=== PATIENT | male | born 1995 | race Caucasian/White ===

== ENCOUNTER 2016-12-15 16:12 | Emergency (ER) | payer MEDICAID, OTHER ==
--- NOTE | 2016-12-15 16:47 | EDM.PDOC ---
ED HPI GENERAL MEDICAL PROBLEM - General Chief Complaint: Upper Extremity Injury/Pain Stated Complaint: LT SHOULDER PAIN Time Seen by Provider: 12/15/16 16:44 Source of Information: Reports: Patient History Limitations: Reports: No Limitations - History of Present Illness INITIAL COMMENTS - FREE TEXT/NARRATIVE: HISTORY AND PHYSICAL: History of present illness: Patient is a 20-year-old male that presents to the emergency room today with complaints of left shoulder pain. States him and a friend were running and jumped into each other, colliding into his left shoulder. Patient has pain with range of motion. Denies any numbness or tingling to the affected extremity. Denies hitting his head or any loss of consciousness Review of systems: As per history of present illness and below otherwise all systems reviewed and negative. Past medical history: As per history of present illness and as reviewed below otherwise noncontributory. Surgical history: As per history of present illness and as reviewed below otherwise noncontributory. Social history: No reported history of drug or alcohol abuse. Family history: As per history of present illness and as reviewed below otherwise noncontributory. Physical exam: Gen.: Nontoxic appearing 19-year-old male. Able to speak in full sentences without shortness of breath. Alert and oriented. HEENT: Atraumatic, normocephalic, pupils reactive, negative for conjunctival pallor or scleral icterus, mucous membranes moist, throat clear, neck supple, nontender, trachea midline. Lungs: Clear to auscultation, breath sounds equal bilaterally, chest nontender. Heart: S1S2, regular, negative for clicks, rubs, or JVD. Abdomen: Soft, nondistended, nontender. Negative for masses or hepatosplenomegaly. Negative for costovertebral tenderness. Pelvis: Stable nontender. Genitourinary: Deferred. Rectal: Deferred. Extremities: Restricted range of motion due to pain at shoulder joint. +CMS, strong radial pulses bilaterally. Neurovascular unremarkable. Neuro: Awake, alert, oriented. Cranial nerves II through XII unremarkable. Cerebellum unremarkable. Motor and sensory unremarkable throughout. Exam nonfocal. Diagnostics: X-ray left shoulder Therapeutics: Toradol, sling Impression: Shoulder injury Plan: 1. Take your Diclofenac as prescribed. Do not take additional NSAIDs such as Ibuprofen or Aleve. May take Tylenol as needed for breakthrough pain. Please wear her sling as needed for discomfort. 2. Please follow-up with orthopedics if your shoulder continues to bother you. Follow up with her primary care provider in the next 1-2 days. May return to the ED as needed as discussed Definitive disposition and diagnosis as appropriate pending reevaluation and review of above. Onset: Today Onset Date: 12/15/16 Location: Reports: Upper Extremity, Left Left Shoulder Pain Score (Numeric/FACES): 9 - Related Data Allergies Allergy/AdvReac Type Severity Reaction Status Date / Time Iodinated Contrast- Oral and Allergy Hives Verified 12/15/16 16:38 IV Dye [Iodinated Contrast Media - IV Dye] Home Meds: Home Meds QUEtiapine [SEROquel] 100 mg PO BEDTIME #30 tablet 08/29/15 [Rx] ARIPiprazole [Abilify] 10 mg PO DAILY 12/15/16 [History] Mirtazapine [Mirtazapine] 15 mg PO DAILY 12/15/16 [History] Past Medical History - Past Health History Medical/Surgical History: Denies Medical/Surgical History HEENT History: Reports: None Cardiovascular History: Reports: None Respiratory History: Reports: None Gastrointestinal History: Reports: None Genitourinary History: Reports: None Musculoskeletal History: Reports: None Neurological History: Reports: None Psychiatric History: Reports: Depression, Mood Swings, Suicide Attempt, Suicidal Ideation Other Psychiatric History: mood disorder Endocrine/Metabolic History: Reports: None Hematologic History: Reports: None Immunologic History: Reports: None Oncologic (Cancer) History: Reports: None Dermatologic History: Reports: None - Infectious Disease History Infectious Disease History: Reports: None - Past Surgical History Head Surgeries/Procedures: Reports: None HEENT Surgical History: Reports: None Cardiovascular Surgical History: Reports: None Endocrine Surgical History: Reports: None Musculoskeletal Surgical History: Reports: None Dermatological Surgical History: Reports: None Social & Family History - Family History Family Medical History: Noncontributory Cardiac: Reports: Hypertension Psychiatric: Reports: Depression Endocrine/Metabolic: Reports: Diabetes, Type I Oncologic: Reports: Colon - Tobacco Use Smoking Status *Q: Former Smoker Years of Tobacco use: 2 Packs/Tins Daily: 1 Used Tobacco, but Quit: Yes Month Tobacco Last Used: 09/2015 Second Hand Smoke Exposure: No - Caffeine Use Caffeine Use: Reports: None - Alcohol Use Days Per Week of Alcohol Use: 1 Number of Drinks Per Day: 2 Total Drinks Per Week: 2 - Recreational Drug Use Recreational Drug Use: No Review of Systems - Review of Systems Review Of Systems: ROS reveals no pertinent complaints other than HPI. ED EXAM, GENERAL - Physical Exam Exam: See Below (Redictation) Course - Vital Signs Last Recorded V/S: Last Vital Signs Temp 37.1 C 12/15/16 16:34 Pulse 58 L 12/15/16 16:34 Resp 12 12/15/16 16:34 BP 117/58 L 12/15/16 16:34 Pulse Ox 98 12/15/16 16:34 - Orders/Labs/Meds Orders: Active Orders 24 hr Category Date Time Status Communication Order [RC] STAT Care 12/15/16 17:19 Ordered Shoulder Comp Lt [CR] Stat Exams 12/15/16 16:43 Taken Ketorolac [Toradol] Med 12/15/16 17:19 Once 60 mg IM ONETIME ONE Departure - Departure Time of Disposition: 17:22 Disposition: Home, Self-Care 01 Condition: Good Clinical Impression: Shoulder injury Qualifiers: Encounter type: initial encounter Laterality: left Qualified Code(s): S49.92XA - Unspecified injury of left shoulder and upper arm, initial encounter - Discharge Information Referrals: PCP,None [Primary Care Provider] - Forms: ED Department Discharge Additional Instructions: The following information is given to patients seen in the emergency department who are being discharged to home. This information is to outline your options for follow-up care. We provide all patients seen in our emergency department with a follow-up referral. The need for follow-up, as well as the timing and circumstances, are variable depending upon the specifics of your emergency department visit. If you don't have a primary care physician on staff, we will provide you with a referral. We always advise you to contact your personal physician following an emergency department visit to inform them of the circumstance of the visit and for follow-up with them and/or the need for any referrals to a consulting specialist. The emergency department will also refer you to a specialist when appropriate. This referral assures that you have the opportunity for follow-up care with a specialist. All of these measure are taken in an effort to provide you with optimal care, which includes your follow-up. Under all circumstances we always encourage you to contact your private physician who remains a resource for coordinating your care. When calling for follow-up care, please make the office aware that this follow-up is from your recent emergency room visit. If for any reason you are refused follow-up, please contact the [facility] emergency department at and asked to speak to the emergency department charge nurse. [facility] [address] [place] [address], [address] [place] [address] my orthopedic [facility] [address], [place] [address] 1. Take your Diclofenac as prescribed. Do not take additional NSAIDs such as Ibuprofen or Aleve. May take Tylenol as needed for breakthrough pain. Please wear your sling as needed for discomfort over the next 1-2 days. 2. Please follow-up with orthopedics if your shoulder continues to bother you. Follow up with her primary care provider in the next 1-2 days. May return to the ED as needed as discussed - My Orders Last 24 Hours: My Active Orders 12/15/16 16:43 Shoulder Comp Lt [CR] Stat 12/15/16 17:19 Communication Order [RC] STAT Ketorolac [Toradol] 60 mg IM ONETIME ONE - Assessment/Plan Last 24 Hours: My Active Orders 12/15/16 16:43 Shoulder Comp Lt [CR] Stat 12/15/16 17:19 Communication Order [RC] STAT Ketorolac [Toradol] 60 mg IM ONETIME ONE
[2016-12-15] MEDS ORDERED: Ketorolac 60 MG/2 ML SDV IM ONE (17:19)
[2016-12-15 17:58] VITALS: BP 106/57
--- NOTE | 2016-12-18 14:59 | CR ---
EXAM DATE: 12/15/16 PATIENT'S AGE: 20 Patient: BENJAMIN URIARTE Facility: [place], [place] Site . Site : 1995 Study: XRay Shoulder Left [id number]/2/[id number] 5:04:26 PM Ordering Physician: Stefania Lane Final Report: Pain injury 3 views left shoulder. Findings: Normal articulation of the glenohumeral joint. No fractures or dislocations. AC joint within is unremarkable. Impression: 1. No acute fracture or dislocation. Dictated by Heike Mohr MD @ Dec 15 2016 5:13PM (Electronic Signature) Report Signed by Proxy. BANDAR
== END 2016-12-15 17:49 | disposition home or self-care (01) ==
LOC: MW.ED 16:12
DX: S49.92XA Unspecified injury of left shoulder and upper arm, initial encounter (principal); Z91.041 Radiographic dye allergy status; Z79.899 Other long term (current) drug therapy; Z87.891 Personal history of nicotine dependence; W51.XXXA Accidental striking against or bumped into by another person, initial encounter
CPT/HCPCS: 73030; 96372; 99283; J1885; 99284

== ENCOUNTER 2017-01-11 13:33 | Emergency (ER) | payer MEDICAID ==
--- NOTE | 2017-01-11 14:31 | EDM.PDOC ---
ED HPI GENERAL MEDICAL PROBLEM - General Chief Complaint: ENT Problem Stated Complaint: SORE THROAT Time Seen by Provider: 01/11/17 13:50 Source of Information: Reports: Patient History Limitations: Reports: No Limitations - History of Present Illness INITIAL COMMENTS - FREE TEXT/NARRATIVE: HISTORY AND PHYSICAL: History of present illness: [21-year-old male with no significant past history now complaining of dry cough for several days. Patient states she's not coughing very much during the day he has no fevers chills sweats or shaking chills. He has no chest pain or shortness of breath. His cough is not productive at all however at night he says sometimes his cough gets quite bad and persistent and it's difficult to sleep so his father told him to come to the emergency department.] Review of systems: As per history of present illness and below otherwise all systems reviewed and negative. Past medical history: As per history of present illness and as reviewed below otherwise noncontributory. Surgical history: As per history of present illness and as reviewed below otherwise noncontributory. Social history: No reported history of drug or alcohol abuse. Family history: As per history of present illness and as reviewed below otherwise noncontributory. Physical exam: Well-appearing patient distress normal respiratory rate and pulse ox clear lungs regular rate and rhythm no tachycardia benign exam HEENT: Atraumatic, normocephalic, pupils reactive, negative for conjunctival pallor or scleral icterus, mucous membranes moist, throat clear, neck supple, nontender, trachea midline. Lungs: Clear to auscultation, breath sounds equal bilaterally, chest nontender. Heart: S1S2, regular, negative for clicks, rubs, or JVD. Abdomen: Soft, nondistended, nontender. Negative for masses or hepatosplenomegaly. Negative for costovertebral tenderness. Pelvis: Stable nontender. Genitourinary: Deferred. Rectal: Deferred. Extremities: Atraumatic, negative for cords or calf pain. Neurovascular unremarkable. Neuro: Awake, alert, oriented. Cranial nerves II through XII unremarkable. Cerebellum unremarkable. Motor and sensory unremarkable throughout. Exam nonfocal. Diagnostics: [] Therapeutics: [] Impression: [] Plan: [Signs and symptoms consistent with viral URI. Well-appearing patient with no active cough. Benign exam. No further workup or treatment indicated specifically chest x-ray not clinically relevant. Patient aware to use Mucinex DM and will prescribe Tessalon for use as needed. He is aware to use a bedside vaporizer and follow-up with his primary care doctor. Patient agrees outpatient follow-up and strict return precautions given] Definitive disposition and diagnosis as appropriate pending reevaluation and review of above. Throat Pain Score (Numeric/FACES): 9 - Related Data Allergies Allergy/AdvReac Type Severity Reaction Status Date / Time Iodinated Contrast- Oral and Allergy Hives Verified 01/11/17 14:05 IV Dye [Iodinated Contrast Media - IV Dye] Home Meds: Home Meds QUEtiapine [SEROquel] 100 mg PO BEDTIME #30 tablet 08/29/15 [Rx] ARIPiprazole [Abilify] 10 mg PO DAILY 12/15/16 [History] Mirtazapine [Mirtazapine] 15 mg PO DAILY 12/15/16 [History] Benzonatate [Tessalon Perles] 200 mg PO TID PRN #24 cap 01/11/17 [Rx] Past Medical History - Past Health History Medical/Surgical History: Denies Medical/Surgical History HEENT History: Reports: None Cardiovascular History: Reports: None Respiratory History: Reports: None Gastrointestinal History: Reports: None Genitourinary History: Reports: None Musculoskeletal History: Reports: None Neurological History: Reports: None Psychiatric History: Reports: Depression, Mood Swings, Suicide Attempt, Suicidal Ideation Other Psychiatric History: mood disorder Endocrine/Metabolic History: Reports: None Hematologic History: Reports: None Immunologic History: Reports: None Oncologic (Cancer) History: Reports: None Dermatologic History: Reports: None - Infectious Disease History Infectious Disease History: Reports: None - Past Surgical History Head Surgeries/Procedures: Reports: None HEENT Surgical History: Reports: None Cardiovascular Surgical History: Reports: None Endocrine Surgical History: Reports: None Musculoskeletal Surgical History: Reports: None Dermatological Surgical History: Reports: None Social & Family History - Family History Family Medical History: Noncontributory Cardiac: Reports: Hypertension Psychiatric: Reports: Depression Endocrine/Metabolic: Reports: Diabetes, Type I Oncologic: Reports: Colon - Tobacco Use Smoking Status *Q: Never Smoker Years of Tobacco use: 2 Packs/Tins Daily: 1 Used Tobacco, but Quit: Yes Month Tobacco Last Used: 09/2015 Second Hand Smoke Exposure: No - Caffeine Use Caffeine Use: Reports: Coffee, Soda - Alcohol Use Days Per Week of Alcohol Use: 1 Number of Drinks Per Day: 2 Total Drinks Per Week: 2 - Recreational Drug Use Recreational Drug Use: No ED ROS ENT - Review of Systems Review Of Systems: See Below (History of present illness) ED EXAM, ENT - Physical Exam Exam: See Below (History of present illness) Course - Vital Signs Last Recorded V/S: Last Vital Signs Temp 37.2 C 01/11/17 14:01 Pulse 69 01/11/17 14:01 Resp 18 01/11/17 14:01 BP 110/53 L 01/11/17 14:01 Pulse Ox 99 01/11/17 14:01 Departure - Departure Time of Disposition: 14:31 Disposition: Home, Self-Care 01 Condition: Good Clinical Impression: Viral URI with cough - Discharge Information Referrals: PCP,None [Primary Care Provider] - Additional Instructions: You have a viral upper respiratory infection. Viral infections will get better on their own they just require time. Pupils were cover the fastest when the eating healthy diet, stay well-hydrated, and get plenty of rest. As you described since your cough gets bad at night you may find it very helpful to use a bedside vaporizer. Use Mucinex DM [id number] cough medicine which also contains a mucolytic to help break up the mucus. Take Tessalon as prescribed as needed for cough and follow-up with your DrKushal in one to 2 days. Return immediately for new severe or worsening symptoms
[2017-01-11 14:57] VITALS: BP 115/58
== END 2017-01-11 14:54 | disposition home or self-care (01) ==
LOC: MW.ED 13:33
DX: J06.9 Acute upper respiratory infection, unspecified (principal); Z79.899 Other long term (current) drug therapy; Z91.041 Radiographic dye allergy status
CPT/HCPCS: 99282

== ENCOUNTER 2017-03-10 21:23 | Emergency (ER) | payer MEDICAID ==
--- NOTE | 2017-03-10 21:26 | EDM.PDOC ---
<FrandypedroMir - Last Filed: 03/10/17 22:37> ED HPI GENERAL MEDICAL PROBLEM - General Stated Complaint: CHEST PAIN Time Seen by Provider: 03/10/17 21:24 - Related Data Allergies Allergy/AdvReac Type Severity Reaction Status Date / Time Iodinated Contrast- Oral and Allergy Hives Verified 03/10/17 21:25 IV Dye [Iodinated Contrast Media - IV Dye] Home Meds: Home Meds QUEtiapine [SEROquel] 100 mg PO BEDTIME #30 tablet 08/29/15 [Rx] ARIPiprazole [Abilify] 10 mg PO DAILY 12/15/16 [History] Mirtazapine [Mirtazapine] 15 mg PO DAILY 12/15/16 [History] Benzonatate [Tessalon Perles] 200 mg PO TID PRN #24 cap 01/11/17 [Rx] ED ROS GENERAL - Review of Systems Review Of Systems: ROS reveals no pertinent complaints other than HPI. ED EXAM, GENERAL - Physical Exam Exam: See Below (See dictation) Course - Vital Signs Text/Narrative:: Chest x-ray sternal x-ray EKG all unremarkable patient be discharged home with diagnosis of chest wall contusion pelvis private doctor 1 today's return as needed as discussed Last Recorded V/S: Last Vital Signs Temp 36.7 C 03/10/17 22:50 Pulse 67 03/10/17 22:50 Resp 20 03/10/17 22:50 BP 108/47 L 03/10/17 22:50 Pulse Ox 97 03/10/17 22:50 - Orders/Labs/Meds Orders: Active Orders 24 hr Category Date Time Status EKG Documentation Completion [RC] STAT Care 03/10/17 21:24 Active Chest 2V [CR] Stat Exams 03/10/17 21:24 Taken Sternum Min 2V [CR] Stat Exams 03/10/17 21:24 Taken Departure - Departure Time of Disposition: 22:38 Disposition: Home, Self-Care 01 Condition: Good Clinical Impression: Chest wall contusion - Discharge Information Instructions: Contusion Referrals: PCP,None [Primary Care Provider] - Forms: ED Department Discharge Additional Instructions: The following information is given to patients seen in the emergency department who are being discharged to home. This information is to outline your options for follow-up care. We provide all patients seen in our emergency department with a follow-up referral. The need for follow-up, as well as the timing and circumstances, are variable depending upon the specifics of your emergency department visit. If you don't have a primary care physician on staff, we will provide you with a referral. We always advise you to contact your personal physician following an emergency department visit to inform them of the circumstance of the visit and for follow-up with them and/or the need for any referrals to a consulting specialist. The emergency department will also refer you to a specialist when appropriate. This referral assures that you have the opportunity for followup care with a specialist. All of these measure are taken in an effort to provide you with optimal care, which includes your followup. Under all circumstances we always encourage you to contact your private physician who remains a resource for coordinating your care. When calling for followup care, please make the office aware that this follow-up is from your recent emergency room visit. If for any reason you are refused follow-up, please contact the [facility] emergency department at and asked to speak to the emergency department charge nurse. Motrin/Tylenol as directed follow-up primary medical doctor 1-2 days return as needed as discussed - My Orders Last 24 Hours: My Active Orders 03/10/17 21:24 EKG Documentation Completion [RC] STAT Chest 2V [CR] Stat Sternum Min 2V [CR] Stat - Assessment/Plan Last 24 Hours: My Active Orders 03/10/17 21:24 EKG Documentation Completion [RC] STAT Chest 2V [CR] Stat Sternum Min 2V [CR] Stat <Beatriz Tadeo - Last Filed: 03/11/17 10:27> ED HPI GENERAL MEDICAL PROBLEM - General Source of Information: Reports: Patient History Limitations: Reports: No Limitations - History of Present Illness INITIAL COMMENTS - FREE TEXT/NARRATIVE: HISTORY AND PHYSICAL: []21-year-old male presenting with concerns over sternal pain History of Present Illness: []Patient was wrestling yesterday thrown onto the floor and then had pain since hurts when he takes a deep breath Review of Systems: As per history of present illness and below otherwise all systems reviewed and negative. Past medical history: As per history of present illness and as reviewed below otherwise noncontributory. Surgical history: As per history of present illness and as reviewed below otherwise noncontributory. Social history: No reported history of drug or alcohol abuse. Family history: As per history of present illness and as reviewed below otherwise noncontributory. Physical exam: Alert and oriented pleasant gentleman, answering questions probably with full sentences no shortness of breath HEENT: Atraumatic, normocehpalic, pupils reactive, negative for conjunctival pallor or scleral icterus, mucous membranes moist, throat clear, neck supple, nontender, trachea midline. Lungs: Clear to auscultation, breath sounds equal bilaterally, chest tender palpable abnormality noted left side of sternum.. Heart: S1S2, regular, negative for clicks, rubs, or JVD. Abdomen: Soft, nondistended, nontender. Negative for masses or hepatossplenmegaly. Negative for costovertebral tenderness. Pelvis: Stable nontender. Genitourinary: Deferred. Rectal: Deferred Extremities: Atraumatic, negative for cords or calf pain. Neurovascular unremarkable. Neuro: Awake, alert, oriented. Cranial nerves II through XII unremarkable. Cerebellum unremarkable. Motor and sensory unremarkable throughout. Exam nonfocal. Diagnostics: [EKG Chest x-ray Sternum] Therapeutics: [] Impression: [Chest wall contusion] Plan: [Discharged to home Tylenol for discomfort Follow-up with your primary care provider in the next 1-2 days] Definitive disposition and diagnosis as appropriate pending reevaluation and review of above. Middle Chest Pain Score (Numeric/FACES): 8 Past Medical History - Past Health History Medical/Surgical History: Denies Medical/Surgical History HEENT History: Reports: None Cardiovascular History: Reports: None Respiratory History: Reports: None Gastrointestinal History: Reports: None Genitourinary History: Reports: None Musculoskeletal History: Reports: None Neurological History: Reports: None Psychiatric History: Reports: Depression, Mood Swings, Suicide Attempt, Suicidal Ideation Other Psychiatric History: mood disorder Endocrine/Metabolic History: Reports: None Hematologic History: Reports: None Immunologic History: Reports: None Oncologic (Cancer) History: Reports: None Dermatologic History: Reports: None - Infectious Disease History Infectious Disease History: Reports: None - Past Surgical History Head Surgeries/Procedures: Reports: None HEENT Surgical History: Reports: None Cardiovascular Surgical History: Reports: None Endocrine Surgical History: Reports: None Musculoskeletal Surgical History: Reports: None Dermatological Surgical History: Reports: None Social & Family History - Family History Family Medical History: Noncontributory Cardiac: Reports: Hypertension Psychiatric: Reports: Depression Endocrine/Metabolic: Reports: Diabetes, Type I Oncologic: Reports: Colon - Tobacco Use Smoking Status *Q: Never Smoker Years of Tobacco use: 2 Packs/Tins Daily: 1 Used Tobacco, but Quit: Yes Month Tobacco Last Used: 09/2015 Second Hand Smoke Exposure: No - Caffeine Use Caffeine Use: Reports: Coffee, Soda - Alcohol Use Days Per Week of Alcohol Use: 1 Number of Drinks Per Day: 2 Total Drinks Per Week: 2 - Recreational Drug Use Recreational Drug Use: No ED ROS GENERAL - Review of Systems Review Of Systems: ROS reveals no pertinent complaints other than HPI. ED EXAM, GENERAL - Physical Exam Exam: See Below (See dictation) Course - Vital Signs Last Recorded V/S: Last Vital Signs Temp 36.7 C 03/10/17 22:50 Pulse 67 03/10/17 22:50 Resp 20 03/10/17 22:50 BP 108/47 L 03/10/17 22:50 Pulse Ox 97 03/10/17 22:50
[2017-03-10 22:58] VITALS: BP 108/47
--- NOTE | 2017-03-11 17:25 | CR ---
EXAM DATE: 03/10/17 PATIENT'S AGE: 21 Patient: BENJAMIN URIARTE Facility: [place], [place] Site . Site : 1995 Study: XRay Chest [id number]/26/2017 10:09:20 PM Ordering Physician: Doctor Oden Final Report: INDICATION: pain TECHNIQUE: Chest 2 views. COMPARISON: None. FINDINGS: Cardiovascular and mediastinum: Heart size and vasculature are normal in caliber and appearance. Mediastinum is within normal limits. Lungs and pleural spaces: Lungs are clear. No sign of infiltrate or mass. No sign of pleural effusion. No pneumothorax. Bones and soft tissues: No significant findings. IMPRESSION: Unremarkable chest. Dictated by: Pramod Celestin MD @ 03/10/2017 22:16:56 (Electronic Signature) Report Signed by Proxy. [facility]SK[facility] MEDICAL CENTERAnna
--- NOTE | 2017-03-11 17:25 | CR ---
EXAM DATE: 03/10/17 PATIENT'S AGE: 21 Patient: BENJAMIN URIARTE Facility: [place], [place] Site . Site : 1995 Study: XRay Chest sternum [id number]/26/2017 10:08:50 PM Ordering Physician: Doctor Oden Final Report: Indication: Pain Technique: Three views of the sternum Comparison: None Findings: There are no fractures. The visualized portions of the chest and normal. The presternal soft tissues are unremarkable. Impression: No evidence of acute trauma. Dictated by Pramod Celestin MD @ 03/10/2017 10:18:16 PM Dictated by: Pramod Celestin MD @ 03/10/2017 22:18:30 (Electronic Signature) Report Signed by Proxy. BANDAR
== END 2017-03-10 22:53 | disposition home or self-care (01) ==
LOC: MW.ED 21:23
DX: S20.219A Contusion of unspecified front wall of thorax, initial encounter (principal); X58.XXXA Exposure to other specified factors, initial encounter
CPT/HCPCS: 71020; 71020-26; 71120; 71120-26; 93005; 99285; 99285-25

== ENCOUNTER 2017-03-16 10:22 | Emergency (ER) | payer MEDICAID ==
[2017-03-16 10:40] VITALS: BP 129/62
--- NOTE | 2017-03-16 12:02 | EDM.PDOC ---
ED HPI GENERAL MEDICAL PROBLEM - General Chief Complaint: Lower Extremity Injury/Pain Stated Complaint: LEFT FOOT PAIN Time Seen by Provider: 03/16/17 10:40 Source of Information: Reports: Patient History Limitations: Reports: No Limitations - History of Present Illness INITIAL COMMENTS - FREE TEXT/NARRATIVE: HISTORY AND PHYSICAL: []21-year-old male presenting with pain to his left inner foot History of Present Illness: []Rolled his foot about a week ago and says it still hurting and would like to have it evaluated Review of Systems: As per history of present illness and below otherwise all systems reviewed and negative. Past medical history: As per history of present illness and as reviewed below otherwise noncontributory. Surgical history: As per history of present illness and as reviewed below otherwise noncontributory. Social history: No reported history of drug or alcohol abuse. Family history: As per history of present illness and as reviewed below otherwise noncontributory. Physical exam: Alert and oriented young man who does not look to be in acute distress he is able to move his foot with full range of motion. He is answering questions in full sentences with no shortness of breath HEENT: Atraumatic, normocehpalic, pupils reactive, negative for conjunctival pallor or scleral icterus, mucous membranes moist, throat clear, neck supple, nontender, trachea midline. Lungs: Clear Heart: S1S2, regular, negative for clicks, rubs, or JVD. Extremities: Atraumatic, negative for cords or calf pain. No ecchymosis noted full range of motion is present to his left foot to stand and walk on this with thinning out any difficulty Neurovascular unremarkable. Neuro: Awake, alert, oriented. Cranial nerves II through XII unremarkable. Cerebellum unremarkable. Motor and sensory unremarkable throughout. Exam nonfocal. Diagnostics: [X-ray left foot] Therapeutics: [] Impression: [Injury to left foot no acute fracture] Plan: []Discharged to home with Tylenol [id number] for discomfort Definitive disposition and diagnosis as appropriate pending reevaluation and review of above. Onset: Sudden Duration: Week(s): (1) Location: Reports: Lower Extremity, Left Left Feet Pain Score (Numeric/FACES): 9 - Related Data Allergies Allergy/AdvReac Type Severity Reaction Status Date / Time Iodinated Contrast- Oral and Allergy Hives Verified 03/16/17 10:40 IV Dye [Iodinated Contrast Media - IV Dye] Home Meds: Home Meds QUEtiapine [SEROquel] 100 mg PO BEDTIME #30 tablet 08/29/15 [Rx] ARIPiprazole [Abilify] 10 mg PO DAILY 12/15/16 [History] Mirtazapine [Mirtazapine] 15 mg PO DAILY 12/15/16 [History] Past Medical History - Past Health History Medical/Surgical History: Denies Medical/Surgical History HEENT History: Reports: None Cardiovascular History: Reports: None Respiratory History: Reports: None Gastrointestinal History: Reports: None Genitourinary History: Reports: None Musculoskeletal History: Reports: None Neurological History: Reports: None Psychiatric History: Reports: Depression, Mood Swings, Suicide Attempt, Suicidal Ideation Other Psychiatric History: mood disorder Endocrine/Metabolic History: Reports: None Hematologic History: Reports: None Immunologic History: Reports: None Oncologic (Cancer) History: Reports: None Dermatologic History: Reports: None - Infectious Disease History Infectious Disease History: Reports: Chicken Pox - Past Surgical History Head Surgeries/Procedures: Reports: None HEENT Surgical History: Reports: None Cardiovascular Surgical History: Reports: None Endocrine Surgical History: Reports: None Musculoskeletal Surgical History: Reports: None Dermatological Surgical History: Reports: None Social & Family History - Family History Family Medical History: Noncontributory Cardiac: Reports: Hypertension Psychiatric: Reports: Depression Endocrine/Metabolic: Reports: Diabetes, Type I Oncologic: Reports: Colon - Tobacco Use Smoking Status *Q: Former Smoker Years of Tobacco use: 2 Packs/Tins Daily: 1 Used Tobacco, but Quit: Yes Month Tobacco Last Used: February Second Hand Smoke Exposure: No - Caffeine Use Caffeine Use: Reports: Coffee, Soda - Alcohol Use Days Per Week of Alcohol Use: 1 Number of Drinks Per Day: 2 Total Drinks Per Week: 2 - Recreational Drug Use Recreational Drug Use: No Review of Systems - Review of Systems Review Of Systems: ROS reveals no pertinent complaints other than HPI. ED EXAM, GENERAL - Physical Exam Exam: See Below (see dictation) Course - Vital Signs Last Recorded V/S: Last Vital Signs Temp 36.3 C 03/16/17 10:38 Pulse 60 03/16/17 10:38 Resp 16 03/16/17 10:38 BP 129/62 03/16/17 10:38 Pulse Ox 96 03/16/17 10:38 - Orders/Labs/Meds Orders: Active Orders 24 hr Category Date Time Status Foot 2V Lt [CR] Stat Exams 03/16/17 10:39 Taken Departure - Departure Time of Disposition: 12:01 Disposition: Home, Self-Care 01 Condition: Good Clinical Impression: Contusion of left foot Qualifiers: Encounter type: initial encounter Qualified Code(s): S90.32XA - Contusion of left foot, initial encounter - Discharge Information Referrals: PCP,None [Primary Care Provider] - Additional Instructions: The following information is given to patients seen in the emergency department who are being discharged to home. This information is to outline your options for follow-up care. We provide all patients seen in our emergency department with a follow-up referral. The need for follow-up, as well as the timing and circumstances, are variable depending upon the specifics of your emergency department visit. If you don't have a primary care physician on staff, we will provide you with a referral. We always advise you to contact your personal physician following an emergency department visit to inform them of the circumstance of the visit and for follow-up with them and/or the need for any referrals to a consulting specialist. The emergency department will also refer you to a specialist when appropriate. This referral assures that you have the opportunity for followup care with a specialist. All of these measure are taken in an effort to provide you with optimal care, which includes your followup. Under all circumstances we always encourage you to contact your private physician who remains a resource for coordinating your care. When calling for followup care, please make the office aware that this follow-up is from your recent emergency room visit. If for any reason you are refused follow-up, please contact the [facility] emergency department at and asked to speak to the emergency department charge nurse. Tylenol for discomfort Follow-up with your PCP - My Orders Last 24 Hours: My Active Orders 03/16/17 10:39 Foot 2V Lt [CR] Stat - Assessment/Plan Last 24 Hours: My Active Orders 03/16/17 10:39 Foot 2V Lt [CR] Stat
--- NOTE | 2017-03-18 13:49 | CR ---
EXAM DATE: 03/16/17 PATIENT'S AGE: 21 Patient: BENJAMIN URIARTE Facility: [place], [place] Site . Site : 1995 Study: XRay Extremity foot [id number]/2/2017 11:47:01 AM Ordering Physician: Doctor Oden Final Report: INDICATION: Foot pain. TECHNIQUE: Two views of the left foot. COMPARISON: None. IMPRESSION: No fracture is identified. No subluxation or dislocation. No significant arthritic changes. Normal alignment. Dictated by Antony Velazquez MD @ 03/16/2017 12:23:41 PM Dictated by: Antony Velazquez MD @ 03/16/2017 12:23:50 (Electronic Signature) Report Signed by Proxy. BANDAR
== END 2017-03-16 12:20 | disposition home or self-care (01) ==
LOC: MW.ED 10:22
DX: S90.32XA Contusion of left foot, initial encounter (principal); Z79.899 Other long term (current) drug therapy; Z87.891 Personal history of nicotine dependence; X50.1XXA Overexertion from prolonged static or awkward postures, initial encounter
CPT/HCPCS: 73620-26-LT; 73620-LT; 99283

== ENCOUNTER 2017-04-17 00:37 | Emergency (ER) | payer MEDICAID ==
[2017-04-17] MEDS ORDERED: Diphtheria,Pertussis(Acell),Tetanus Vaccine 0.5 ML Syringe IM ONE (01:47)
--- NOTE | 2017-04-17 01:48 | EDM.PDOC ---
ED HPI GENERAL MEDICAL PROBLEM - General Chief Complaint: Behavioral/Psych Stated Complaint: CUTTING HIMSELF Time Seen by Provider: 04/17/17 01:48 Source of Information: Reports: Patient - History of Present Illness INITIAL COMMENTS - FREE TEXT/NARRATIVE: HISTORY AND PHYSICAL: History of present illness: [ Patient presents with local Police Department he is not under arrest at this time apparently the patient had called a nonemergent hotline stating he had suicidal ideation stemming from a bad day at work where he became upset and may have left work early that is unclear at this time. Is arrival home he had taken a fingernail clipper and scratched his left forearm several superficial abrasions not full-thickness no current bleeding, he has some other areas of skin which are welted up and inflamed consistent with rubbing them with a fingernail clipper He has a history of bipolar disorder and depression he is on mirtazapine and Seroquel and Abilify he is noncompliant with these medications he states that he is taken them as needed which has been intermittent and last taken 3 days prior Has multiple admissions at [facility] in mind that was suicidal ideation per patient he has not been admitted for 1-1.5 years As any other symptoms such as fever nausea vomiting diarrhea constipation chest pain shortness breath headache dizziness palpitation no bowel or urine symptoms ] Review of systems: As per history of present illness and below otherwise all systems reviewed and negative. Past medical history: As per history of present illness and as reviewed below otherwise noncontributory. Surgical history: As per history of present illness and as reviewed below otherwise noncontributory. Social history: No reported history of drug or alcohol abuse. Family history: As per history of present illness and as reviewed below otherwise noncontributory. Physical exam: HEENT: Atraumatic, normocephalic, pupils reactive, negative for conjunctival pallor or scleral icterus, mucous membranes moist, throat clear, neck supple, nontender, trachea midline. Lungs: Clear to auscultation, breath sounds equal bilaterally, chest nontender. Heart: S1S2, regular, negative for clicks, rubs, or JVD. Abdomen: Soft, nondistended, nontender. Negative for masses or hepatosplenomegaly. Negative for costovertebral tenderness. Pelvis: Stable nontender. Genitourinary: Deferred. Rectal: Deferred. Extremities: Atraumatic, negative for cords or calf pain. Neurovascular unremarkable. Neuro: Awake, alert, oriented. Cranial nerves II through XII unremarkable. Cerebellum unremarkable. Motor and sensory unremarkable throughout. Exam nonfocal. Skin as per history of present illness otherwise unremarkable Diagnostics: []CBC CMP UA drug screen aspirin and Tylenol levels and TSH EKG Chest 1 view Therapeutics: []Tetanus status is updated Patient admitted to [facility] Dr. Goodman is the accepting physician at its discuss patient with Dr. cuellar [facility] however they do not have any psychiatric beds available however he did recommend psych evaluation and be seen and treated by psychiatrist 24-hour Holter will be placed on the patient and expect him to be sent by ground to [facility] in [place] Impression: []Suicidal ideation Definitive disposition and diagnosis as appropriate pending reevaluation and review of above. left hand Pain Score (Numeric/FACES): 2 - Related Data Allergies Allergy/AdvReac Type Severity Reaction Status Date / Time Iodinated Contrast- Oral and Allergy Hives Verified 04/17/17 01:14 IV Dye [Iodinated Contrast Media - IV Dye] Home Meds: Home Meds QUEtiapine [SEROquel] 100 mg PO BEDTIME #30 tablet 08/29/15 [Rx] ARIPiprazole [Abilify] 10 mg PO DAILY 12/15/16 [History] Mirtazapine [Mirtazapine] 15 mg PO DAILY 12/15/16 [History] Past Medical History - Past Health History Medical/Surgical History: Denies Medical/Surgical History HEENT History: Reports: None Cardiovascular History: Reports: None Respiratory History: Reports: None Gastrointestinal History: Reports: None Genitourinary History: Reports: None Musculoskeletal History: Reports: None Neurological History: Reports: None Psychiatric History: Reports: Depression, Mood Swings, Suicide Attempt, Suicidal Ideation Other Psychiatric History: mood disorder Endocrine/Metabolic History: Reports: None Hematologic History: Reports: None Immunologic History: Reports: None Oncologic (Cancer) History: Reports: None Dermatologic History: Reports: None - Infectious Disease History Infectious Disease History: Reports: None - Past Surgical History Head Surgeries/Procedures: Reports: None HEENT Surgical History: Reports: None Cardiovascular Surgical History: Reports: None Endocrine Surgical History: Reports: None Musculoskeletal Surgical History: Reports: None Dermatological Surgical History: Reports: None Social & Family History - Family History Family Medical History: Noncontributory Cardiac: Reports: Hypertension Psychiatric: Reports: Depression Endocrine/Metabolic: Reports: Diabetes, Type I Oncologic: Reports: Colon - Tobacco Use Smoking Status *Q: Current Every Day Smoker Years of Tobacco use: 4 Packs/Tins Daily: 2 Used Tobacco, but Quit: Yes Month Tobacco Last Used: February Second Hand Smoke Exposure: No - Caffeine Use Caffeine Use: Reports: Coffee, Soda - Alcohol Use Days Per Week of Alcohol Use: 1 Number of Drinks Per Day: 2 Total Drinks Per Week: 2 - Recreational Drug Use Recreational Drug Use: No ED ROS GENERAL - Review of Systems Review Of Systems: ROS reveals no pertinent complaints other than HPI. ED EXAM, GENERAL - Physical Exam Exam: See Below Course - Vital Signs Last Recorded V/S: Last Vital Signs Temp 98.5 F 04/17/17 01:14 Pulse 64 04/17/17 01:14 Resp 18 04/17/17 01:14 BP 122/65 04/17/17 01:14 Pulse Ox 98 04/17/17 01:14 - Orders/Labs/Meds Orders: Active Orders 24 hr Category Date Time Status EKG Documentation Completion [RC] STAT Care 04/17/17 01:47 Active Vaccines to be Administered [RC] PER UNIT ROUTINE Care 04/17/17 01:47 Active Chest 1V Frontal [CR] Stat Exams 04/17/17 01:48 Taken Labs: Laboratory Tests 04/17/17 04/17/17 04/17/17 Range/Units 02:04 02:04 02:09 WBC 5.96 (4.0-11.0) K/uL RBC 5.07 (4.50-5.90) M/uL Hgb 16.0 (13.0-17.0) g/dL Hct 44.8 (38.0-50.0) % MCV 88.4 (80.0-98.0) fL MCH 31.6 (27.0-32.0) pg MCHC 35.7 (31.0-37.0) g/dL RDW Std Deviation 38.6 (28.0-62.0) fl RDW Coeff of Jen 12 (11.0-15.0) % Plt Count 201 (150-400) K/uL MPV 10.10 (7.40-12.00) fL Neut % (Auto) 54.7 (48.0-80.0) % Lymph % (Auto) 25.0 (16.0-40.0) % [place] % (Auto) 9.1 (0.0-15.0) % Eos % (Auto) 10.9 H (0.0-7.0) % Baso % (Auto) 0.3 (0.0-1.5) % Neut # (Auto) 3.3 (1.4-5.7) K/uL Lymph # (Auto) 1.5 (0.6-2.4) K/uL [place] # (Auto) 0.5 (0.0-0.8) K/uL Eos # (Auto) 0.7 (0.0-0.7) K/uL Baso # (Auto) 0.0 (0.0-0.1) K/uL Nucleated RBC % 0.0 /100WBC Nucleated RBCs # 0 K/uL Sodium (136-146) mmol/L Potassium (3.5-5.1) mmol/L Chloride (98-110) mmol/L Carbon Dioxide (21-31) mmol/L BUN (6.0-23.0) mg/dL Creatinine (0.6-1.5) mg/dL Est Cr Clr Drug Dosing mL/min Estimated GFR (MDRD) ml/min Glucose (60-110) mg/dL Calcium (8.8-10.8) mg/dL Total Bilirubin (0.1-1.5) mg/dL AST (5-40) IU/L ALT (8-54) IU/L Alkaline Phosphatase (40-150) Total Protein (6.0-8.0) g/dL Albumin (3.5-5.0) g/dL Globulin (2.0-3.5) g/dL Albumin/Globulin Ratio (1.3-2.8) TSH 3rd Generation (0.47-5.0) uIU/mL Urine Color YELLOW Urine Appearance SLT CLOUDY Urine pH 8.0 (5.0-8.0) Ur Specific [place] 1.020 (1.001-1.035) Urine Protein NEGATIVE (NEGATIVE) mg/dL Urine Glucose (UA) NEGATIVE (NEGATIVE) mg/dL Urine Ketones NEGATIVE (NEGATIVE) mg/dL Urine Occult Blood NEGATIVE (NEGATIVE) Urine Nitrite NEGATIVE (NEGATIVE) Urine Bilirubin NEGATIVE (NEGATIVE) Urine Urobilinogen 1.0 (<2.0) EU/dL Ur Leukocyte Esterase NEGATIVE (NEGATIVE) Urine RBC 0-1 (0-2/HPF) Urine WBC 0-1 (0-5/HPF) Ur Epithelial Cells RARE (NONE-FEW) Amorphous Sediment MANY (NEGATIVE) Urine Bacteria FEW (NEGATIVE) Salicylates (0-20) mg/dL Urine Opiates Screen NEGATIVE (NEGATIVE) Ur Oxycodone Screen NEGATIVE (NEGATIVE) Urine Methadone Screen NEGATIVE (NEGATIVE) Acetaminophen ug/mL Ur Barbiturates Screen NEGATIVE (NEGATIVE) Ur Phencyclidine Scrn NEGATIVE (NEGATIVE) Ur Amphetamine Screen NEGATIVE (NEGATIVE) U Methamphetamines Scrn NEGATIVE (NEGATIVE) U Benzodiazepines Scrn NEGATIVE (NEGATIVE) U Cocaine Metab Screen NEGATIVE (NEGATIVE) U Marijuana (THC) Screen NEGATIVE (NEGATIVE) Ethyl Alcohol mg/dL 04/17/17 Range/Units 02:09 WBC (4.0-11.0) K/uL RBC (4.50-5.90) M/uL Hgb (13.0-17.0) g/dL Hct (38.0-50.0) % MCV (80.0-98.0) fL MCH (27.0-32.0) pg MCHC (31.0-37.0) g/dL RDW Std Deviation (28.0-62.0) fl RDW Coeff of Jen (11.0-15.0) % Plt Count (150-400) K/uL MPV (7.40-12.00) fL Neut % (Auto) (48.0-80.0) % Lymph % (Auto) (16.0-40.0) % [place] % (Auto) (0.0-15.0) % Eos % (Auto) (0.0-7.0) % Baso % (Auto) (0.0-1.5) % Neut # (Auto) (1.4-5.7) K/uL Lymph # (Auto) (0.6-2.4) K/uL [place] # (Auto) (0.0-0.8) K/uL Eos # (Auto) (0.0-0.7) K/uL Baso # (Auto) (0.0-0.1) K/uL Nucleated RBC % /100WBC Nucleated RBCs # K/uL Sodium 142 (136-146) mmol/L Potassium 4.3 (3.5-5.1) mmol/L Chloride 106 (98-110) mmol/L Carbon Dioxide 27 (21-31) mmol/L BUN 13 (6.0-23.0) mg/dL Creatinine 1.0 (0.6-1.5) mg/dL Est Cr Clr Drug Dosing 113.40 mL/min Estimated GFR (MDRD) > 60.0 ml/min Glucose 93 (60-110) mg/dL Calcium 9.7 (8.8-10.8) mg/dL Total Bilirubin 0.7 (0.1-1.5) mg/dL AST 23 (5-40) IU/L ALT 17 (8-54) IU/L Alkaline Phosphatase 77 (40-150) Total Protein 8.0 (6.0-8.0) g/dL Albumin 4.8 (3.5-5.0) g/dL Globulin 3.2 (2.0-3.5) g/dL Albumin/Globulin Ratio 1.5 (1.3-2.8) TSH 3rd Generation 2.62 (0.47-5.0) uIU/mL Urine Color Urine Appearance Urine pH (5.0-8.0) Ur Specific [place] (1.001-1.035) Urine Protein (NEGATIVE) mg/dL Urine Glucose (UA) (NEGATIVE) mg/dL Urine Ketones (NEGATIVE) mg/dL Urine Occult Blood (NEGATIVE) Urine Nitrite (NEGATIVE) Urine Bilirubin (NEGATIVE) Urine Urobilinogen (<2.0) EU/dL Ur Leukocyte Esterase (NEGATIVE) Urine RBC (0-2/HPF) Urine WBC (0-5/HPF) Ur Epithelial Cells (NONE-FEW) Amorphous Sediment (NEGATIVE) Urine Bacteria (NEGATIVE) Salicylates < 5.0 (0-20) mg/dL Urine Opiates Screen (NEGATIVE) Ur Oxycodone Screen (NEGATIVE) Urine Methadone Screen (NEGATIVE) Acetaminophen < 3.0 ug/mL Ur Barbiturates Screen (NEGATIVE) Ur Phencyclidine Scrn (NEGATIVE) Ur Amphetamine Screen (NEGATIVE) U Methamphetamines Scrn (NEGATIVE) U Benzodiazepines Scrn (NEGATIVE) U Cocaine Metab Screen (NEGATIVE) U Marijuana (THC) Screen (NEGATIVE) Ethyl Alcohol < 10.0 mg/dL Meds: Medications Discontinued Medications Generic Name Dose Route Start Last Admin Trade Name Álvaroq PRN Reason Stop Dose Admin Diphtheria/Tetanus/Acell Pertussis 0.5 ml 04/17/17 01:47 04/17/17 02:02 Adacel IM 04/17/17 01:48 0.5 ml .ONCE ONE Administration Departure - Departure Time of Disposition: 03:51 Disposition: DC/Tfer to Other 70 Condition: Good Clinical Impression: Depressive disorder, Suicidal ideation, Deliberate self-cutting - Discharge Information Referrals: PCP,None [Primary Care Provider] - Forms: ED Department Discharge - My Orders Last 24 Hours: My Active Orders 04/17/17 01:47 EKG Documentation Completion [RC] STAT Vaccines to be Administered [RC] PER UNIT ROUTINE 04/17/17 01:48 Chest 1V Frontal [CR] Stat - Assessment/Plan Last 24 Hours: My Active Orders 04/17/17 01:47 EKG Documentation Completion [RC] STAT Vaccines to be Administered [RC] PER UNIT ROUTINE 04/17/17 01:48 Chest 1V Frontal [CR] Stat
[2017-04-17 02:39] LABS: ACETAMINOPHEN < 3.0 ug/mL; CHLORIDE,CL 106 mmol/L (98-110); SODIUM,NA 142 mmol/L (136-146)
[2017-04-17 05:39] VITALS: BP 117/68
--- NOTE | 2017-04-17 11:19 | CR ---
EXAM DATE: 04/17/17 PATIENT'S AGE: 21 Patient: BENJAMIN URIARTE Facility: [place], [place] Site . Site : 1995 Study: XRay Chest [id number]/3/2018 2:41:28 AM Ordering Physician: Stefania Lane Final Report: INDICATIONS: Depression. Cut hands with fingernail clippers. TECHNIQUE: Chest 1 portable view. COMPARISON: None FINDINGS: No pneumothorax, pleural effusion or airspace consolidation. Cardiac and mediastinal contours are within normal limits. Upper abdomen and osseous structures show no acute abnormality. IMPRESSION: No evidence of acute cardiopulmonary disease. Dictated by Cipriano Kerns MD @ 04/17/2017 2:47:26 AM Dictated by: Cipriano Kerns MD @ 04/17/2017 02:47:35 (Electronic Signature) Report Signed by Proxy. [facility]ENTERAnna
== END 2017-04-17 04:58 | disposition other institution (70) ==
LOC: MW.ED 00:37
DX: S60.512A Abrasion of left hand, initial encounter (principal); F32.9 Major depressive disorder, single episode, unspecified; F17.210 Nicotine dependence, cigarettes, uncomplicated; Z91.041 Radiographic dye allergy status; Z79.899 Other long term (current) drug therapy; X78.8XXA Intentional self-harm by other sharp object, initial encounter
CPT/HCPCS: 36415; 71045; 80053; 80305; 81001; 84443; 85025; 90471; 90715; 93005; 99285; G0480; 99283

== ENCOUNTER 2017-05-10 20:49 | Emergency (ER) | payer MEDICAID ==
[2017-05-10 20:59] VITALS: BP 129/58
--- NOTE | 2017-05-10 21:06 | EDM.PDOC ---
ED HPI GENERAL MEDICAL PROBLEM - General Chief Complaint: Lower Extremity Injury/Pain Stated Complaint: LEFT FOOT PAIN Time Seen by Provider: 05/10/17 21:04 - History of Present Illness INITIAL COMMENTS - FREE TEXT/NARRATIVE: HISTORY AND PHYSICAL: History of present illness: [] Review of systems: As per history of present illness and below otherwise all systems reviewed and negative. Past medical history: As per history of present illness and as reviewed below otherwise noncontributory. Surgical history: As per history of present illness and as reviewed below otherwise noncontributory. Social history: No reported history of drug or alcohol abuse. Family history: As per history of present illness and as reviewed below otherwise noncontributory. Physical exam: HEENT: Atraumatic, normocephalic, pupils reactive, negative for conjunctival pallor or scleral icterus, mucous membranes moist, throat clear, neck supple, nontender, trachea midline. Lungs: Clear to auscultation, breath sounds equal bilaterally, chest nontender. Heart: S1S2, regular, negative for clicks, rubs, or JVD. Abdomen: Soft, nondistended, nontender. Negative for masses or hepatosplenomegaly. Negative for costovertebral tenderness. Pelvis: Stable nontender. Genitourinary: Deferred. Rectal: Deferred. Extremities: Patient is some mild tenderness medial aspect of his left forefoot some small swelling noted no crepitation Achilles tendon is intact no gross deformity neurovascular exams unremarkable Neuro: Awake, alert, oriented. Cranial nerves II through XII unremarkable. Cerebellum unremarkable. Motor and sensory unremarkable throughout. Exam nonfocal. Diagnostics: X-ray left foot Therapeutics: None Impression: 1 left foot injury Definitive disposition and diagnosis as appropriate pending reevaluation and review of above. Patient is a 21-year-old white male presents with concern of left foot injury that occurred possibly this point. I'll recently he denies other trauma or concern Left Feet Pain Score (Numeric/FACES): 10 - Related Data Allergies Allergy/AdvReac Type Severity Reaction Status Date / Time Iodinated Contrast- Oral and Allergy Hives Verified 05/10/17 20:58 IV Dye [Iodinated Contrast Media - IV Dye] Home Meds: Home Meds QUEtiapine [SEROquel] 100 mg PO BEDTIME #30 tablet 08/29/15 [Rx] ARIPiprazole [Abilify] 10 mg PO DAILY 12/15/16 [History] Mirtazapine [Mirtazapine] 15 mg PO BEDTIME 12/15/16 [History] Past Medical History - Past Health History Medical/Surgical History: Denies Medical/Surgical History HEENT History: Reports: None Cardiovascular History: Reports: None Respiratory History: Reports: None Gastrointestinal History: Reports: None Genitourinary History: Reports: None Musculoskeletal History: Reports: None Neurological History: Reports: None Psychiatric History: Reports: Bipolar, Depression, Mood Swings, Suicide Attempt , Suicidal Ideation Other Psychiatric History: mood disorder Endocrine/Metabolic History: Reports: None Hematologic History: Reports: None Immunologic History: Reports: None Oncologic (Cancer) History: Reports: None Dermatologic History: Reports: None - Infectious Disease History Infectious Disease History: Reports: None - Past Surgical History Head Surgeries/Procedures: Reports: None HEENT Surgical History: Reports: None Cardiovascular Surgical History: Reports: None Endocrine Surgical History: Reports: None Musculoskeletal Surgical History: Reports: None Dermatological Surgical History: Reports: None Social & Family History - Family History Family Medical History: Noncontributory Cardiac: Reports: Hypertension Psychiatric: Reports: Depression Endocrine/Metabolic: Reports: Diabetes, Type I Oncologic: Reports: Colon - Tobacco Use Smoking Status *Q: Never Smoker Years of Tobacco use: 4 Packs/Tins Daily: 2 Used Tobacco, but Quit: Yes Month Tobacco Last Used: February Second Hand Smoke Exposure: No - Caffeine Use Caffeine Use: Reports: Coffee, Energy Drinks, Soda - Alcohol Use Days Per Week of Alcohol Use: 1 Number of Drinks Per Day: 2 Total Drinks Per Week: 2 - Recreational Drug Use Recreational Drug Use: No Review of Systems - Review of Systems Review Of Systems: ROS reveals no pertinent complaints other than HPI. ED EXAM, GENERAL - Physical Exam Exam: See Below (See dictation) Course - Vital Signs Last Recorded V/S: Last Vital Signs Temp 36.0 C 05/10/17 20:55 Pulse 57 L 05/10/17 20:55 Resp 17 05/10/17 20:55 BP 129/58 L 05/10/17 20:55 Pulse Ox 98 05/10/17 20:55 Departure - Departure Time of Disposition: 21:05 Disposition: Home, Self-Care 01 Condition: Good Clinical Impression: Foot injury - Discharge Information Referrals: PCP,None [Primary Care Provider] - Additional Instructions: The following information is given to patients seen in the emergency department who are being discharged to home. This information is to outline your options for follow-up care. We provide all patients seen in our emergency department with a follow-up referral. The need for follow-up, as well as the timing and circumstances, are variable depending upon the specifics of your emergency department visit. If you don't have a primary care physician on staff, we will provide you with a referral. We always advise you to contact your personal physician following an emergency department visit to inform them of the circumstance of the visit and for follow-up with them and/or the need for any referrals to a consulting specialist. The emergency department will also refer you to a specialist when appropriate. This referral assures that you have the opportunity for followup care with a specialist. All of these measure are taken in an effort to provide you with optimal care, which includes your followup. Under all circumstances we always encourage you to contact your private physician who remains a resource for coordinating your care. When calling for followup care, please make the office aware that this follow-up is from your recent emergency room visit. If for any reason you are refused follow-up, please contact the [facility] emergency department at and asked to speak to the emergency department charge nurse. Motrin/Tylenol as directed follow-up paramedics documented today's return as needed as discussed
--- NOTE | 2017-05-13 12:56 | CR ---
EXAM DATE: 05/10/17 PATIENT'S AGE: 21 Patient: BENJAMIN URIARTE Facility: [place], [place] Site . Site : 1995 Study: XRay Extremity Left [id number] 9:57:56 PM Ordering Physician: Blanco Hester Final Report: HISTORY: Injury 2 days ago. FINDINGS: Two views of the left foot are compared with 16 March 2017. Bone mineralization is normal. There is normal alignment. No acute fracture line identified. IMPRESSION: No acute fracture within the left foot. Dictated by Barbara Morales MD @ 05/10/2017 10:26:22 PM Dictated by: Barbara Morales MD @ 05/10/2017 22:26:27 (Electronic Signature) Report Signed by Proxy. [facility] MEDICAL CENTERAnna
== END 2017-05-10 22:25 | disposition home or self-care (01) ==
LOC: MW.ED 20:49
DX: S99.922A Unspecified injury of left foot, initial encounter (principal); F31.9 Bipolar disorder, unspecified; Z79.899 Other long term (current) drug therapy; Z91.041 Radiographic dye allergy status; X58.XXXA Exposure to other specified factors, initial encounter
CPT/HCPCS: 73620-26-LT; 73620-LT; 99283

== ENCOUNTER 2017-08-14 19:06 | Emergency (ER) | payer MEDICAID ==
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
[2017-08-14 20:08] VITALS: BP 114/75
--- NOTE | 2017-08-15 10:02 | CR ---
EXAM DATE: 08/14/17 PATIENT'S AGE: 21 Patient: BENJAMIN URIARTE Facility: [place], [place] Site . Site : 1995 Study: XRay Extremity Left [id number] 7:37:35 PM Ordering Physician: Doctor Oden Final Report: INDICATION: L great toe pain TECHNIQUE: Three views of the left great toe COMPARISON: None FINDINGS: Bones: No fractures or bone lesions. Joint spaces: Unremarkable. Soft tissues: Unremarkable. IMPRESSION: No acute bony abnormality Dictated by Rigo Douglas MD @ 08/14/2017 7:43:56 PM Dictated by: Rigo Douglas MD @ 08/14/2017 19:44:04 (Electronic Signature) Report Signed by Proxy. BANDAR
== END 2017-08-14 19:55 | disposition home or self-care (01) ==
LOC: MW.ED 19:06
DX: L03.032 Cellulitis of left toe (principal); F31.9 Bipolar disorder, unspecified; Z79.899 Other long term (current) drug therapy
CPT/HCPCS: 73660-26-TA; 73660-TA; 99283

== ENCOUNTER 2017-10-19 19:16 | Emergency (ER) | payer MEDICAID ==
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
[2017-10-19] MEDS ORDERED: Ketorolac 30 MG/ML SDV IVPUSH ONE (20:14)
[2017-10-19 21:05] LABS: CHLORIDE,CL 107 mmol/L (98-107); SODIUM,NA 142 mmol/L (136-148)
[2017-10-19 21:13] VITALS: BP 122/68
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
== END 2017-10-19 21:00 | disposition home or self-care (01) ==
LOC: MW.ED 19:16
DX: S06.0X9A Concussion with loss of consciousness of unspecified duration, initial encounter (principal); S80.211A Abrasion, right knee, initial encounter; S60.512A Abrasion of left hand, initial encounter; S60.511A Abrasion of right hand, initial encounter; W17.89XA Other fall from one level to another, initial encounter
CPT/HCPCS: 36415; 70450; 71045; 72070; 72100; 72125; 72170; 73030; 73562; 80053; 85025; 96374; 99284; J1885

== ENCOUNTER 2017-10-30 23:52 | Emergency (ER) | payer MEDICAID ==
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
[2017-10-31 00:36] VITALS: BP 147/67
== END 2017-10-31 00:33 | disposition home or self-care (01) ==
LOC: MW.ED 23:52
DX: S00.83XA Contusion of other part of head, initial encounter (principal); Y04.8XXA Assault by other bodily force, initial encounter; Z91.041 Radiographic dye allergy status; Z87.891 Personal history of nicotine dependence
CPT/HCPCS: 82962; 99284

== ENCOUNTER 2017-11-04 17:32 | Emergency (ER) | payer OTHER, MEDICAID ==
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
[2017-11-04 19:10] VITALS: BP 121/62
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
== END 2017-11-04 19:05 | disposition home or self-care (01) ==
LOC: MW.ED 17:32
DX: S49.92XA Unspecified injury of left shoulder and upper arm, initial encounter (principal); Z91.041 Radiographic dye allergy status; Z79.899 Other long term (current) drug therapy; V49.9XXA Car occupant (driver) (passenger) injured in unspecified traffic accident, initial encounter
CPT/HCPCS: 70450; 70450-26; 73030-26-LT; 73030-LT; 99283; 99285-25

== ENCOUNTER 2018-05-08 21:07 | Emergency (ER) | payer MEDICARE, MEDICAID ==
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
[2018-05-08 22:16] VITALS: BP 114/48
== END 2018-05-08 22:13 | disposition home or self-care (01) ==
LOC: MW.ED 21:07
DX: J02.9 Acute pharyngitis, unspecified (principal); Z91.041 Radiographic dye allergy status
CPT/HCPCS: 87081; 87880-QW; 99283

== ENCOUNTER 2018-05-13 02:44 | Emergency (ER) | payer MEDICARE, MEDICAID ==
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
[2018-05-13 03:30] VITALS: BP 119/50
== END 2018-05-13 03:20 | disposition home or self-care (01) ==
LOC: MW.ED 02:44
DX: B34.9 Viral infection, unspecified (principal); Z91.041 Radiographic dye allergy status
CPT/HCPCS: 87804; 99282; 99283

== ENCOUNTER 2018-06-30 14:59 | Emergency (ER) | payer MEDICARE, MEDICAID ==
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
[2018-06-30 17:04] VITALS: BP 113/62
== END 2018-06-30 15:46 | disposition home or self-care (01) ==
LOC: MW.ED 14:59
DX: J40 Bronchitis, not specified as acute or chronic (principal); Z91.041 Radiographic dye allergy status
CPT/HCPCS: 87081; 87804; 87880-QW; 99283

== ENCOUNTER 2018-07-05 11:04 | Emergency (ER) | payer MEDICARE, MEDICAID ==
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
[2018-07-05 11:35] VITALS: BP 107/51
== END 2018-07-05 11:45 | disposition home or self-care (01) ==
LOC: MW.ED 11:04
DX: R21 Rash and other nonspecific skin eruption (principal); Z91.041 Radiographic dye allergy status
CPT/HCPCS: 99282

== ENCOUNTER 2018-07-17 12:05 | Emergency (ER) | payer MEDICARE, MEDICAID ==
[2018-07-17 12:17] VITALS: BP 133/65
[2018-07-17] MEDS ORDERED: Ketorolac 60 MG/2 ML SDV IM ONE (12:26)
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
--- NOTE | 2018-07-17 14:00 | CR ---
EXAM DATE: 07/17/18 PATIENT'S AGE: 22 Patient: BENJAMIN URIARTE Facility: [facility] Site . Site : 1996 Study: XRay-Knee Right [id number] 12:57:28 PM Ordering Physician: Doctor Oden Final Report: Indication: Knee pain Technique: Right knee 3 views Comparison: None Findings: Bones: Alignment is normal. No fractures or bone lesions. Joint spaces: Joint spaces are well maintained. No degenerative changes. No sign of joint effusion. Soft tissues: Unremarkable. Impression: No findings to explain pain. Dictated by Yoav Hilario MD @ Jul 17 2018 1:07PM Signed by: Yoav Hilario MD @07/17/2018 1:09:14 PM (Electronic Signature) Report Signed by Proxy. [facility]
== END 2018-07-17 13:44 | disposition home or self-care (01) ==
LOC: MW.ED 12:05
DX: M25.561 Pain in right knee (principal); F17.210 Nicotine dependence, cigarettes, uncomplicated; Z91.041 Radiographic dye allergy status
CPT/HCPCS: 73562; 96372; 99283; J1885

== ENCOUNTER 2018-09-01 13:14 | Emergency (ER) | payer MEDICAID, MEDICARE ==
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
[2018-09-01 13:27] VITALS: BP 123/60
--- NOTE | 2018-09-01 14:02 | CR ---
EXAMINATION: Soft tissue neck HISTORY: Pain COMPARISON: None TECHNIQUE: AP and lateral views FINDINGS: Prevertebral soft tissues appear normal. Epiglottis is unremarkable. Subglottic airway is grossly normal. No definite focal soft tissue swelling. Visualized osseous structures appear normal. IMPRESSION: Unremarkable soft tissue neck.
== END 2018-09-01 14:15 | disposition home or self-care (01) ==
LOC: MW.ED 13:14
DX: J02.9 Acute pharyngitis, unspecified (principal); Z91.041 Radiographic dye allergy status
CPT/HCPCS: 70360; 70360-26; 87081; 87880-QW; 99282; 99283-25

== ENCOUNTER 2018-09-02 23:38 | Emergency (ER) | payer MEDICARE, MEDICAID ==
[2018-09-02] MEDS ORDERED: Bacitracin Oint 1 GM U/D Packet TOP ONE (23:46)
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
[2018-09-03 00:06] VITALS: BP 103/50
== END 2018-09-03 00:04 | disposition home or self-care (01) ==
LOC: MW.ED 23:38
DX: S41.111A Laceration without foreign body of right upper arm, initial encounter (principal); Z91.041 Radiographic dye allergy status; W20.8XXA Other cause of strike by thrown, projected or falling object, initial encounter
CPT/HCPCS: 99282; 99283

== ENCOUNTER 2018-09-08 00:43 | Emergency (ER) | payer MEDICARE, MEDICAID ==
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
[2018-09-08 01:19] VITALS: BP 109/61
== END 2018-09-08 01:19 | disposition home or self-care (01) ==
LOC: MW.ED 00:43
DX: Z77.098 Contact with and (suspected) exposure to other hazardous, chiefly nonmedicinal, chemicals (principal); Z91.041 Radiographic dye allergy status
CPT/HCPCS: 71045; 71045-26; 99284-25

== ENCOUNTER 2018-10-12 01:08 | Emergency (ER) | payer MEDICARE, MEDICAID ==
[2018-10-12 01:23] VITALS: BP 126/62
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
== END 2018-10-12 02:57 | disposition home or self-care (01) ==
LOC: MW.ED 01:08
DX: S39.012A Strain of muscle, fascia and tendon of lower back, initial encounter (principal); Z91.041 Radiographic dye allergy status; V80.010A Animal-rider injured by fall from or being thrown from horse in noncollision accident, initial encounter
CPT/HCPCS: 72100; 72100-26; 99283-25

== ENCOUNTER 2018-11-22 14:41 | Emergency (ER) | payer MEDICARE, MEDICAID ==
[2018-11-22 14:50] VITALS: BP 133/74; PULSE 59
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
== END 2018-11-22 16:05 | disposition home or self-care (01) ==
LOC: MW.ED 14:41
DX: R03.0 Elevated blood-pressure reading, without diagnosis of hypertension (principal); Z88.7 Allergy status to serum and vaccine; Z91.041 Radiographic dye allergy status
CPT/HCPCS: 99283; 99283-25

== ENCOUNTER 2018-12-10 20:41 | Emergency (ER) | payer MEDICARE, MEDICAID ==
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
--- NOTE | 2018-12-10 21:18 | CR ---
INDICATION: Pin viable, pain TECHNIQUE: Chest and five views right ribs COMPARISON: None FINDINGS: Cardiovascular and mediastinum: Heart size and vasculature are normal in caliber and appearance. Mediastinum is within normal limits. Lungs and pleural spaces: Lungs are clear. No sign of infiltrate or mass. No sign of pleural effusion. No pneumothorax. Bones and soft tissues: Detailed oblique images of the right ribs demonstrate no fractures or bone lesions. IMPRESSION: Unremarkable chest and right ribs. Dictated by Tracy Hickman MD @ Dec 10 2018 9:14PM Signed by Dr. Tracy Hickman @ Dec 10 2018 9:16PM
[2018-12-10 22:10] LABS: CHLORIDE,CL 106 mmol/L (98-107); SODIUM,NA 141 mmol/L (136-148)
[2018-12-10 22:18] VITALS: BP 102/57
== END 2018-12-10 22:28 | disposition home or self-care (01) ==
LOC: MW.ED 20:41
DX: S20.211A Contusion of right front wall of thorax, initial encounter (principal); Z88.7 Allergy status to serum and vaccine; Z91.041 Radiographic dye allergy status; W55.29XA Other contact with cow, initial encounter
CPT/HCPCS: 36415; 71101-26-RT; 71101-RT; 80048; 80305-QW; 81003; 85025; 99283; 99284-25

== ENCOUNTER 2018-12-21 23:49 | Emergency (ER) | payer MEDICARE, MEDICAID ==
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
--- NOTE | 2018-12-22 00:42 | CR ---
Indication: Knee pain Technique: Left knee 3 views Comparison: None Findings: Bones: Alignment is normal. No fractures or bone lesions. Joint spaces: Joint spaces are well maintained. No degenerative changes. No sign of joint effusion. Soft tissues: Unremarkable. Impression: Unremarkable left knee. Dictated by Kareem Mcpherson MD @ Dec 22 2018 12:41AM Signed by Dr. Kareem Mcpherson @ Dec 22 2018 12:41AM
[2018-12-22 01:53] VITALS: BP 107/51; PULSE 56
== END 2018-12-22 01:38 | disposition home or self-care (01) ==
LOC: MW.ED 23:49
DX: M25.562 Pain in left knee (principal); Z88.7 Allergy status to serum and vaccine; Z91.041 Radiographic dye allergy status; Z79.899 Other long term (current) drug therapy
CPT/HCPCS: 73562-26-LT; 73562-LT; 99282; 99283-25

== ENCOUNTER 2018-12-30 19:31 | Emergency (ER) | payer MEDICARE, MEDICAID ==
[2018-12-30 19:47] VITALS: BP 131/62; PULSE 62
[2018-12-30] MEDS ORDERED: Ketorolac 60 MG/2 ML SDV IM ONE (19:52)
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
== END 2018-12-30 20:39 | disposition home or self-care (01) ==
LOC: MW.ED 19:31
DX: R51 Headache (principal); Z88.7 Allergy status to serum and vaccine; Z91.041 Radiographic dye allergy status
CPT/HCPCS: 96372; 99284; J1885; 99282

== ENCOUNTER 2019-01-08 01:11 | Emergency (ER) | payer MEDICARE, MEDICAID ==
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
[2019-01-08] MEDS ORDERED: Cyclobenzaprine 10 MG Tab PO ONE (01:24)
[2019-01-08 02:14] VITALS: BP 133/66; PULSE 68
== END 2019-01-08 01:48 | disposition home or self-care (01) ==
LOC: MW.ED 01:11
DX: S29.012A Strain of muscle and tendon of back wall of thorax, initial encounter (principal); Z88.7 Allergy status to serum and vaccine; Z91.041 Radiographic dye allergy status; X50.9XXA Other and unspecified overexertion or strenuous movements or postures, initial encounter; Y93.E5 Activity, floor mopping and cleaning
CPT/HCPCS: 99283; A9270

== ENCOUNTER 2019-01-11 10:42 | Emergency (ER) | payer MEDICARE, MEDICAID ==
--- NOTE | 2019-01-11 11:42 | CR ---
INDICATION: Left posterior chest wall pain TECHNIQUE: Chest and left ribs views. COMPARISON: None FINDINGS: Cardiovascular and mediastinum: Heart size and vasculature are normal in caliber and appearance. Mediastinum is within normal limits. Lungs and pleural spaces: Lungs are clear. No sign of infiltrate or mass. No sign of pleural effusion. No pneumothorax. Bones and soft tissues: Detailed oblique images of the left ribs demonstrate no fractures or bone lesions. IMPRESSION: Unremarkable chest and left ribs. Dictated by Pramod Celestin MD @ 01/11/2019 11:40:33 AM Dictated by: Pramod Celestin MD @ 01/11/2019 11:40:40 (Electronically Signed)
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
[2019-01-11 12:00] VITALS: BP 164/72; PULSE 77
== END 2019-01-11 12:01 | disposition home or self-care (01) ==
LOC: MW.ED 10:42
DX: M54.6 Pain in thoracic spine (principal); Z88.7 Allergy status to serum and vaccine; Z91.041 Radiographic dye allergy status
CPT/HCPCS: 71101-26-LT; 71101-LT; 99282; 99283-25

== ENCOUNTER 2019-01-29 23:47 | Emergency (ER) | payer MEDICARE, MEDICAID ==
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
[2019-01-30] MEDS ORDERED: Ketorolac 10 MG Tab PO ONE (00:33)
[2019-01-30 00:37] VITALS: BP 114/60; PULSE 64
== END 2019-01-30 00:40 | disposition home or self-care (01) ==
LOC: MW.ED 23:47
DX: M62.838 Other muscle spasm (principal); Z88.7 Allergy status to serum and vaccine; Z91.041 Radiographic dye allergy status
CPT/HCPCS: 93005; 99284; A9270

== ENCOUNTER 2019-02-05 01:04 | Emergency (ER) | payer MEDICAID, MEDICARE ==
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
[2019-02-05 01:37] VITALS: BP 128/58; PULSE 65
== END 2019-02-05 01:38 | disposition home or self-care (01) ==
LOC: MW.ED 01:04
DX: M75.92 Shoulder lesion, unspecified, left shoulder (principal); M62.838 Other muscle spasm; Z88.7 Allergy status to serum and vaccine; Z91.041 Radiographic dye allergy status
CPT/HCPCS: 99282; 99283

== ENCOUNTER 2019-02-07 23:48 | Emergency (ER) | payer MEDICARE, MEDICAID ==
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
--- NOTE | 2019-02-08 00:33 | CR ---
Indication: Pain while walking Technique: Three views of the left knee Comparison: Left knee radiographs 12/22/2018 Findings/Impression: There is no fracture or intrinsic bone lesion. The knee joint is anatomically aligned. There is no significant joint narrowing. There is no joint effusion. The surrounding soft tissues are unremarkable. Dictated by Sarah Taveras MD @ Feb 08 2019 12:31AM Signed by Dr. Sarah Taveras @ Feb 08 2019 12:31AM
[2019-02-08 00:43] VITALS: BP 120/77; PULSE 74
== END 2019-02-08 00:42 | disposition home or self-care (01) ==
LOC: MW.ED 23:48
DX: M25.562 Pain in left knee (principal); Z88.7 Allergy status to serum and vaccine; Z91.041 Radiographic dye allergy status
CPT/HCPCS: 73562-26-LT; 73562-LT; 99282; 99283-25

== ENCOUNTER 2019-03-02 20:29 | Emergency (ER) | payer MEDICARE, MEDICAID ==
[2019-03-02 20:45] VITALS: BP 143/66; PULSE 75
[2019-03-02] MEDS ORDERED: Ketorolac 60 MG/2 ML SDV IM ONE (21:02)
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
--- NOTE | 2019-03-02 21:36 | CR ---
Indication: Neck pain. Technique: Three views of the cervical spine were obtained. Comparison: CT scan dated October 19, 2017. Findings: Alignment of the cervical spine is within normal limits. The vertebral body heights are well maintained. Intervertebral disc space heights are well maintained. No fracture or subluxation is identified. Impression: No acute fracture. Dictated by Carolyn Reed MD @ Mar 02 2019 9:34PM Signed by Dr. Carolyn Reed @ Mar 02 2019 9:35PM
== END 2019-03-02 21:56 | disposition home or self-care (01) ==
LOC: MW.ED 20:29
DX: M54.2 Cervicalgia (principal); F17.210 Nicotine dependence, cigarettes, uncomplicated; Z88.7 Allergy status to serum and vaccine; Z91.041 Radiographic dye allergy status
CPT/HCPCS: 72040; 96372; 99284; J1885; J2360; 99283

== ENCOUNTER 2019-03-07 20:28 | Emergency (ER) | payer MEDICARE, MEDICAID ==
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
--- NOTE | 2019-03-07 21:00 | CR ---
INDICATION: Pt c/o blacking out today. TECHNIQUE: Chest 1 view. COMPARISON: 10/19/17 FINDINGS: Cardiovascular and mediastinum: Heart size and vasculature are normal in caliber and appearance. Mediastinum is within normal limits. Lungs and pleural space: Lungs are clear. No sign of infiltrate or mass. No sign of pleural effusion. No pneumothorax. Bones and soft tissues: No significant findings. IMPRESSION: Unremarkable chest. Dictated by: Pramod Celestin MD @ 03/07/2019 20:58:11 (Electronically Signed)
[2019-03-07 21:29] VITALS: BP 125/65; PULSE 82
== END 2019-03-07 21:28 | disposition home or self-care (01) ==
LOC: MW.ED 20:28
DX: Z13.9 Encounter for screening, unspecified (principal); F32.9 Major depressive disorder, single episode, unspecified; Z88.7 Allergy status to serum and vaccine; Z91.041 Radiographic dye allergy status; Z79.899 Other long term (current) drug therapy
CPT/HCPCS: 71045; 71045-26; 93005; 99283; 99284-25

== ENCOUNTER 2019-03-11 00:51 | Emergency (ER) | payer MEDICARE, MEDICAID ==
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
[2019-03-11 01:12] VITALS: BP 109/60; PULSE 72
== END 2019-03-11 01:05 | disposition home or self-care (01) ==
LOC: MW.ED 00:51
DX: H66.91 Otitis media, unspecified, right ear (principal); Z88.7 Allergy status to serum and vaccine; Z91.041 Radiographic dye allergy status
CPT/HCPCS: 99282

== ENCOUNTER 2019-03-17 23:01 | Emergency (ER) | payer MEDICARE, MEDICAID ==
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
[2019-03-17 23:36] VITALS: BP 106/53; PULSE 70
== END 2019-03-17 23:32 | disposition home or self-care (01) ==
LOC: MW.ED 23:01
DX: Z13.9 Encounter for screening, unspecified (principal); F31.9 Bipolar disorder, unspecified; F17.210 Nicotine dependence, cigarettes, uncomplicated; Z88.7 Allergy status to serum and vaccine; Z91.041 Radiographic dye allergy status; Z79.899 Other long term (current) drug therapy
CPT/HCPCS: 36415; 85025; 99282; 99283

== ENCOUNTER 2019-04-01 01:28 | Emergency (ER) | payer MEDICARE, MEDICAID ==
[2019-04-01] MEDS ORDERED: Ketorolac 60 MG/2 ML SDV IM ONE (01:35)
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
[2019-04-01 01:59] VITALS: BP 111/60; PULSE 61
== END 2019-04-01 01:55 | disposition home or self-care (01) ==
LOC: MW.ED 01:28
DX: R07.89 Other chest pain (principal); F41.9 Anxiety disorder, unspecified; Z88.7 Allergy status to serum and vaccine; Z91.041 Radiographic dye allergy status; Z79.899 Other long term (current) drug therapy
CPT/HCPCS: 96372; 99283; J1885

== ENCOUNTER 2019-04-18 22:34 | Emergency (ER) | payer MEDICARE, MEDICAID ==
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
[2019-04-19 02:19] VITALS: BP 101/53; PULSE 62
== END 2019-04-19 01:40 | disposition home or self-care (01) ==
LOC: MW.ED 22:34
DX: M54.5 Low back pain (principal); F17.210 Nicotine dependence, cigarettes, uncomplicated; Z88.7 Allergy status to serum and vaccine; Z91.041 Radiographic dye allergy status
CPT/HCPCS: 99283

== ENCOUNTER 2019-04-20 00:15 | Emergency (ER) | payer MEDICARE, MEDICAID ==
[2019-04-20 01:49] LABS: BLOOD UREA NITROGEN,BUN 28 mg/dL (7.0-18.0); CARBON DIOXIDE,CO2 29.3 mmol/L (21.0-32.0); CHLORIDE,CL 106 mmol/L (98-107); GLUCOSE RANDOM 101 mg/dL (74-106); SODIUM,NA 142 mmol/L (136-148)
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
[2019-04-20 03:28] VITALS: BP 115/50; PULSE 54
== END 2019-04-20 03:27 | disposition home or self-care (01) ==
LOC: MW.ED 00:15
DX: R55 Syncope and collapse (principal); Z88.7 Allergy status to serum and vaccine; Z91.041 Radiographic dye allergy status
CPT/HCPCS: 36415; 80048; 85025; 93005; 99283; 99284-25

== ENCOUNTER 2019-04-27 22:32 | Emergency (ER) | payer MEDICARE, MEDICAID ==
--- NOTE | 2019-04-27 23:35 | CR ---
INDICATION: Pain, no history of trauma TECHNIQUE: Review 2nd digit left hand COMPARISON: None FINDINGS: Bones: Alignment is normal. No fractures or bone lesions. Joint spaces: Unremarkable. Soft tissues: Unremarkable. IMPRESSION: Negative. Dictated by Pramod Celestin MD @ 04/27/2019 11:33:54 PM Dictated by: Pramod Celestin MD @ 04/27/2019 23:34:00 (Electronically Signed)
--- NOTE | 2019-04-27 23:35 | CR ---
Indication: Pain, no injury Technique: Three views of the cervical spine Comparison: None Findings: The cervical vertebral bodies demonstrate normal height and alignment. The intervertebral disc spaces are maintained. There is normal width of the atlantodental interval. There is no prevertebral edema. The dens process appears intact. Impression: No acute abnormality of the cervical spine. Dictated by Sarah Taveras MD @ Apr 27 2019 11:33PM Signed by Dr. Sarah Taveras @ Apr 27 2019 11:33PM
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
[2019-04-28 00:19] VITALS: BP 119/53; PULSE 70
== END 2019-04-28 00:15 | disposition home or self-care (01) ==
LOC: MW.ED 22:32
DX: S16.1XXA Strain of muscle, fascia and tendon at neck level, initial encounter (principal); S49.92XA Unspecified injury of left shoulder and upper arm, initial encounter; F32.9 Major depressive disorder, single episode, unspecified; F17.210 Nicotine dependence, cigarettes, uncomplicated; Z91.041 Radiographic dye allergy status; Z88.7 Allergy status to serum and vaccine; Z79.899 Other long term (current) drug therapy; X58.XXXA Exposure to other specified factors, initial encounter
CPT/HCPCS: 72040; 72040-26; 73140-26-F1; 73140-F1; 99283-25

== ENCOUNTER 2019-05-06 21:14 | Emergency (ER) | payer MEDICARE, MEDICAID ==
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
--- NOTE | 2019-05-06 22:06 | CR ---
Indication: Pain, no injury Technique: Three views of the right knee Comparison: Right knee radiographs 07/17/2018 Findings: There is no fracture or intrinsic bone lesion. There is no significant joint space narrowing. There is no suprapatellar joint effusion. The surrounding soft tissues are unremarkable. Impression: Normal radiographic appearance of the knee. Dictated by Sarah Taveras MD @ May 06 2019 10:04PM Signed by Dr. Sarah Taveras @ May 06 2019 10:06PM
[2019-05-06 22:23] VITALS: BP 103/55; PULSE 75
== END 2019-05-06 22:20 | disposition home or self-care (01) ==
LOC: MW.ED 21:14
DX: M25.561 Pain in right knee (principal); Z88.7 Allergy status to serum and vaccine; Z91.041 Radiographic dye allergy status; W19.XXXA Unspecified fall, initial encounter
CPT/HCPCS: 73562-26-RT; 73562-RT; 99282; 99283-25

== ENCOUNTER 2019-05-24 21:48 | Emergency (ER) | payer MEDICARE, MEDICAID ==
--- NOTE | 2019-05-24 22:23 | CR ---
Indication: Irregular heart rate. Technique: PA and lateral views the chest. Comparison: March 07, 2019. Findings: The heart is normal in size. The lungs are clear. No infiltrate, pleural effusion, or pneumothorax is identified. Impression: No acute cardiopulmonary process Dictated by Carolyn Reed MD @ May 24 2019 10:21PM Signed by Dr. Carolyn Reed @ May 24 2019 10:22PM
[2019-05-24 22:46] LABS: BLOOD UREA NITROGEN,BUN 23 mg/dL (7.0-18.0); CARBON DIOXIDE,CO2 29.8 mmol/L (21.0-32.0); CHLORIDE,CL 104 mmol/L (98-107); GLUCOSE RANDOM 103 mg/dL (74-106); LIPASE 104 U/L (73-393); POTASSIUM,K 3.8 mmol/L (3.5-5.1); SODIUM,NA 140 mmol/L (136-148)
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
[2019-05-24 22:56] VITALS: BP 103/37; PULSE 59
== END 2019-05-24 22:59 | disposition home or self-care (01) ==
LOC: MW.ED 21:48
DX: R07.2 Precordial pain (principal); F31.9 Bipolar disorder, unspecified; F17.210 Nicotine dependence, cigarettes, uncomplicated; Z88.7 Allergy status to serum and vaccine; Z91.041 Radiographic dye allergy status; Z79.899 Other long term (current) drug therapy
CPT/HCPCS: 36415; 71046; 71046-26; 80053; 83690; 84484; 85025; 93005; 99283; 99285-25

== ENCOUNTER 2022-05-11 04:00 | Emergency (ER) | payer OTHER, MEDICARE ==
[2022-05-11] MEDS ORDERED: Acetaminophen 500 MG Tab PO ONE (04:13)
[2022-05-11 04:22] VITALS: BP 145/77; PULSE 92
== END 2022-05-11 04:24 | disposition home or self-care (01) ==
LOC: MW.ED 04:00
DX: Z04.1 Encounter for examination and observation following transport accident (principal); Z88.7 Allergy status to serum and vaccine; Z91.041 Radiographic dye allergy status
CPT/HCPCS: 99283; A9270

== ENCOUNTER 2022-09-01 22:19 | Emergency (ER) | payer MEDICAID, MEDICARE, OTHER ==
[2022-09-01] MEDS ORDERED: Albuterol 8 GM Inhaler INH PRN (23:21)
[2022-09-01 23:34] VITALS: BP 110/76; PULSE 68
== END 2022-09-01 23:32 | disposition home or self-care (01) ==
LOC: MW.ED 22:19
DX: J98.01 Acute bronchospasm (principal); Z88.7 Allergy status to serum and vaccine; Z91.041 Radiographic dye allergy status
CPT/HCPCS: 93005; 99285; A9270; 93010

== ENCOUNTER 2022-09-08 01:08 | Emergency (ER) | payer MEDICARE ==
[2022-09-08] MEDS ORDERED: Ibuprofen 600 MG Tab PO ONE (01:41)
[2022-09-08 02:15] VITALS: BP 126/66; PULSE 71
== END 2022-09-08 02:03 | disposition home or self-care (01) ==
LOC: MW.ED 01:08
DX: F32.A Depression, unspecified (principal); Z91.041 Radiographic dye allergy status; Z88.7 Allergy status to serum and vaccine
CPT/HCPCS: 99284; A9270; 99283

== ENCOUNTER 2022-10-04 22:26 | Emergency (ER) | payer MEDICARE ==
[2022-10-04] MEDS ORDERED: Acetaminophen/HYDROcodone 325-10 MG Tab PO ONE (22:58)
[2022-10-05 02:10] VITALS: BP 120/54; PULSE 60
== END 2022-10-05 02:10 | disposition home or self-care (01) ==
LOC: MW.ED 22:26
DX: S87.01XA Crushing injury of right knee, initial encounter (principal); S77.11XA Crushing injury of right thigh, initial encounter; S80.01XA Contusion of right knee, initial encounter; S70.11XA Contusion of right thigh, initial encounter; Z88.7 Allergy status to serum and vaccine; Z91.041 Radiographic dye allergy status; Z72.0 Tobacco use; V80.018A Animal-rider injured by fall from or being thrown from other animal in noncollision accident, initial encounter; Y93.I9 Activity, other involving external motion
CPT/HCPCS: 73552; 73560; 73590; 73600; 99283; A9270

== ENCOUNTER 2022-10-21 02:29 | Emergency (ER) | payer MEDICARE ==
[2022-10-21 03:31] VITALS: BP 121/60; PULSE 60
== END 2022-10-21 02:47 | disposition home or self-care (01) ==
LOC: MW.ED 02:29
DX: S89.91XA Unspecified injury of right lower leg, initial encounter (principal); Z91.041 Radiographic dye allergy status; Z88.7 Allergy status to serum and vaccine; W55.22XA Struck by cow, initial encounter
CPT/HCPCS: 99283; 99284

== ENCOUNTER 2022-12-15 03:08 | Emergency (ER) | payer SELFPAY ==
[2022-12-15 07:38] VITALS: BP 115/67; PULSE 65
== END 2022-12-15 07:37 | disposition home or self-care (01) ==
LOC: MW.ED 03:08
DX: F32.A Depression, unspecified (principal); F17.210 Nicotine dependence, cigarettes, uncomplicated; Z91.041 Radiographic dye allergy status; Z88.7 Allergy status to serum and vaccine
CPT/HCPCS: 99282; 99284

== ENCOUNTER 2022-12-23 01:13 | Emergency (ER) | payer MEDICARE ==
[2022-12-23 02:27] VITALS: BP 121/71; PULSE 62
== END 2022-12-23 02:26 | disposition home or self-care (01) ==
LOC: MW.ED 01:13
DX: J02.9 Acute pharyngitis, unspecified (principal); Z20.822 Contact with and (suspected) exposure to COVID-19; Z91.041 Radiographic dye allergy status
CPT/HCPCS: 87651; 99283; U0002

== ENCOUNTER 2023-01-31 12:10 | Emergency (ER) | payer MEDICARE, OTHER ==
[2023-01-31] MEDS ORDERED: Ibuprofen 600 MG Tab PO ONE (12:22)
[2023-01-31 12:24] VITALS: BP 124/62
[2023-01-31 13:49] VITALS: PULSE 60
== END 2023-01-31 13:49 | disposition home or self-care (01) ==
LOC: MW.ED 12:10
DX: S60.051A Contusion of right little finger without damage to nail, initial encounter (principal); Z88.7 Allergy status to serum and vaccine; Z91.041 Radiographic dye allergy status; W20.8XXA Other cause of strike by thrown, projected or falling object, initial encounter
CPT/HCPCS: 73140; 99283; A9270

== ENCOUNTER 2023-02-23 00:37 | Emergency (ER) | payer MEDICARE ==
[2023-02-23 02:43] VITALS: BP 106/59; PULSE 68
== END 2023-02-23 02:41 | disposition home or self-care (01) ==
LOC: MW.ED 00:37
DX: F10.129 Alcohol abuse with intoxication, unspecified (principal); F41.8 Other specified anxiety disorders; Z88.7 Allergy status to serum and vaccine; Z91.041 Radiographic dye allergy status
CPT/HCPCS: 99283; 99284

== ENCOUNTER 2023-03-14 01:34 | Emergency (ER) | payer MEDICARE ==
[2023-03-14 04:00] VITALS: BP 120/60; PULSE 71
== END 2023-03-14 04:00 | disposition home or self-care (01) ==
LOC: MW.ED 01:34
DX: M25.561 Pain in right knee (principal); Z91.041 Radiographic dye allergy status; Z88.7 Allergy status to serum and vaccine; Z79.899 Other long term (current) drug therapy
CPT/HCPCS: 73560-26-RT; 73560-RT; 99283; 99284

== ENCOUNTER 2023-10-03 09:34 | Emergency (ER) | payer MEDICARE ==
[2023-10-03] MEDS: Ibuprofen 400 MG Tab PO ONE (09:53)
[2023-10-03 10:03] VITALS: PULSE 75
[2023-10-03 11:11] VITALS: BP 121/87
== END 2023-10-03 11:09 | disposition home or self-care (01) ==
LOC: MW.ED 09:34
DX: S93.402A Sprain of unspecified ligament of left ankle, initial encounter (principal); Z88.7 Allergy status to serum and vaccine; Z91.041 Radiographic dye allergy status; Z79.899 Other long term (current) drug therapy; W50.0XXA Accidental hit or strike by another person, initial encounter; Y93.64 Activity, baseball
CPT/HCPCS: 73610; 99283; A9270

== ENCOUNTER 2024-08-19 07:23 | Emergency (ER) | payer MEDICARE, MEDICAID ==
[2024-08-19] MEDS: Ketorolac 60 MG/2 ML SDV IM ONE (08:05)
[2024-08-19 08:43] VITALS: BP 108/60; PULSE 55
== END 2024-08-19 08:43 | disposition home or self-care (01) ==
LOC: MW.ED 07:23
DX: S60.021A Contusion of right index finger without damage to nail, initial encounter (principal); Z88.7 Allergy status to serum and vaccine; Z91.041 Radiographic dye allergy status; Z79.899 Other long term (current) drug therapy; W22.8XXA Striking against or struck by other objects, initial encounter; Y93.89 Activity, other specified
CPT/HCPCS: 73130; 73140; 96372; 99283; J1885

== ENCOUNTER 2024-09-23 23:13 | Emergency (ER) | payer MEDICARE, MEDICAID ==
[2024-09-23] MEDS ORDERED: Sodium Chloride 0.9% 10 ML Syringe FLUSH PRN (23:23)
[2024-09-23] MEDS ORDERED: Sodium Chloride 0.9% 2.5 ML Syringe FLUSH PRN (23:23)
[2024-09-23] MEDS: Sodium Chloride 0.9% 1,000 ML IV SCH (23:36)
[2024-09-23] MEDS: Ondansetron 4 MG/2 ML SDV IVPUSH ONE (23:37)
[2024-09-23] MEDS: Famotidine 20 MG/2 ML SDV IVPUSH ONE (23:37)
[2024-09-23] MEDS: Dicyclomine 10 MG Cap PO ONE (23:39)
[2024-09-23 23:42] LABS: BASOPHILS ABSOLUTE AUTO 0.02 K/uL (0.00-0.20); BASOPHILS PERCENT AUTO 0.3 % (0.0-1.0); EOSINOPHILS ABSOLUTE AUTO 0.14 K/uL (0.00-0.45); EOSINOPHILS PERCENT AUTO 1.8 % (0.0-6.0); HEMATOCRIT 42.6 % (42.0-52.0); HEMOGLOBIN 15.6 g/dL (14.0-18.0); IMMATURE GRAN ABSOLUTE AUTO 0.01 K/uL (0.00-0.05); IMMATURE GRAN PERCENT AUTO 0.1 % (0.0-0.4); LYMPHOCYTES ABSOLUTE AUTO 1.74 K/uL (1.00-4.80); LYMPHOCYTES PERCENT AUTO 22.1 % (24.0-44.0); MEAN CORPUSCULAR HEMOGLOBIN 31.5 pg (28.0-32.0); MEAN CORPUSCULAR HGB CONC 36.6 g/dL (32.0-36.0); MEAN CORPUSCULAR VOLUME 86.1 fL (83.0-99.0); MEAN PLATELET VOLUME 9.9 fL (9.4-12.4); MONOCYTES ABSOLUTE AUTO 0.54 K/uL (0.00-0.80); MONOCYTES PERCENT AUTO 6.9 % (0.0-8.0); NEUTROPHILS ABSOLUTE AUTO 5.41 K/uL (1.80-7.70); NEUTROPHILS PERCENT AUTO 68.8 % (41.0-71.0); PLATELET COUNT,PLT 229 K/uL (150-400); RED BLOOD CELL COUNT 4.95 M/uL (4.52-5.90); WHITE BLOOD CELL COUNT,WBC 7.86 K/uL (3.9-11.3)
[2024-09-24 00:03] LABS: A/G RATIO 1.4 (0.9-1.6); ALBUMIN 4.3 g/dL (3.4-5.0); BILIRUBIN TOTAL 0.6 mg/dL (0.2-1.0); CALCIUM 9.2 mg/dL (8.5-10.1); CARBON DIOXIDE,CO2 24.8 mmol/L (21.0-32.0); CREATININE 1.2 mg/dL (0.8-1.3); EST CRCL DRUG DOSING (CG) 98.48 mL/min; POTASSIUM,K 3.2 mmol/L (3.5-5.1); PROTEIN TOTAL,TP 7.4 g/dL (6.4-8.2)
[2024-09-24 01:11] LABS: APPEARANCE,URINE CLEAR; BILIRUBIN,URINE NEGATIVE (NEGATIVE); COLOR,URINE YELLOW; GLUCOSE,URINE NEGATIVE (NEGATIVE); KETONES,URINE TRACE mg/dL (NEGATIVE); LEUKOCYTE ESTERASE,URINE NEGATIVE (NEGATIVE); NITRITE,URINE NEGATIVE (NEGATIVE); OCCULT BLOOD,URINE NEGATIVE (NEGATIVE); PROTEIN,URINE NEGATIVE (NEGATIVE); UROBILINOGEN,URINE 0.2 EU/dL (<2.0)
[2024-09-24 02:21] VITALS: BP 112/59; PULSE 60
== END 2024-09-24 02:25 | disposition home or self-care (01) ==
LOC: MW.ED 23:13
DX: R10.11 Right upper quadrant pain (principal); R55 Syncope and collapse; Z88.7 Allergy status to serum and vaccine; Z91.048 Other nonmedicinal substance allergy status
CPT/HCPCS: 36415; 80053; 81003; 83690; 84484; 85025; 93005; 96361; 96374; 96375; 99284; A9270; J2405; J7030; 93010; 99283